=== PATIENT | male | born 1960 | race Caucasian/White ===

== ENCOUNTER → 2024-12-02 | Outpatient (CLI) | payer BC ==
[2024-12-02 11:16] LABS: Partial Thromboplastin Time 24.7 sec (22.0-30.0); Prothrombin Time 11.3 sec (10.0-12.5)
[2024-12-02 15:05] LABS: HCT 41.8 % (39.6-50.0); HGB 14.5 g/dL (13.0-17.0); MCHC 34.7 g/dL (32.0-37.0); MCV 89.5 FL (80.0-97.0); Mean Platelet Volume 9.1 FL (9.5-12.2); NRBC Per 100 WBC 0 X 10*3/uL (0.00-0.01); Platelet Count 333 X 10*3/uL (140-440); RBC 4.67 X 10*6/uL (4.40-5.60); RDW 13.7 % (11.5-14.5); WBC 6.56 X 10*3/uL (4.50-10.00)
[2024-12-02 15:59] LABS: ALT 22 U/L (10-49); AST 20 U/L (14-35); Albumin 4.6 g/dL (3.8-4.9); Alkaline Phosphatase 58 U/L (41-126); BUN/Creat Ratio 20.12 Ratio (12.00-20.00); Blood Urea Nitrogen 16.1 mg/dL (9.0-27.0); Calcium 9.7 mg/dL (8.7-10.3); Carbon Dioxide 23.7 mmol/L (21.6-31.8); Chloride 105 mmol/L (96-109); Globulin 2.7 g/dL (1.6-3.3); Glucose 87 mg/dL (70-110); Potassium 4.6 mmol/L (3.5-5.5); Sodium 139 mmol/L (135-145); Total Bilirubin 0.8 mg/dL (0.3-1.2); Total Protein 7.3 g/dL (6.2-8.2)
== END | disposition home or self-care (01) ==
LOC: LABPAT 10:39
PROVIDERS: ATTEND Orthopaedic Surgery Sports Medicine
DX: Z01.818 Encounter for other preprocedural examination (principal); M19.012 Primary osteoarthritis, left shoulder; Z22.322 Carrier or suspected carrier of Methicillin resistant Staphylococcus aureus
CPT/HCPCS: 36415; 80053; 85027; 85610; 85730; 87070; 93005

== ENCOUNTER 2024-12-24 06:08 | Day surgery (SDC) | payer BC ==
[~2024-12-24 06:08] MED LIST: TRANEXAMIC 1,000 MG/100ML-NACL 1,000 MG in SALINE 1 100ML.BAG IVPB PRN
[2024-12-24] MEDS ORDERED: LIDOCAINE 1% (10MG/ML) FOR IV START INTRADERMA PRN (06:20)
[2024-12-24] MEDS: IV FLUID CONTINUATION 1,000 ML IV ONE (06:45)
[2024-12-24] MEDS: LACTATED RINGERS 1,000 ML IV SCH ×2 (06:53→15:38)
[2024-12-24] MEDS: MELOXICAM 7.5 MG TAB PO PRN (06:54)
[2024-12-24] MEDS: ONDANSETRON 4 MG/2 ML VIAL IVP PRN (06:54)
[2024-12-24] MEDS: GABAPENTIN 300 MG CAP PO PRN (06:54)
[2024-12-24] MEDS: ACETAMINOPHEN TAB 500 MG TAB PO PRN (06:54)
[2024-12-24] MEDS: MIDAZOLAM 2 MG/2 ML VIAL IV ONE (07:03)
[2024-12-24] MEDS ORDERED: LIDOCAINE 1% INJ 10MG/ML (20 ML MDV) ONE (07:39)
[2024-12-24] MEDS ORDERED: fentaNYL (PF) 50 MCG/ML 2 ML AMP ONE (07:39)
[2024-12-24] MEDS ORDERED: PHENYLEPHRINE-0.9% NACL SYG 1,000 MCG/10 ML SYRINGE ONE (07:39)
[2024-12-24] MEDS ORDERED: TRANEXAMIC 1,000 MG/100ML-NACL PREMIX BAG ONE (07:39)
[2024-12-24] MEDS ORDERED: ROPIVACAINE 5 MG/ML 30 ML VIAL ONE (07:39)
[2024-12-24] MEDS ORDERED: SUCCINYLCHOLINE CHLORIDE 200 MG/10 ML VIAL IV ONE (07:39)
[2024-12-24] MEDS ORDERED: GLYCOPYRROLATE 0.2 MG/ML 2 ML VIAL ONE (07:39)
[2024-12-24] MEDS ORDERED: ePHEDrine 50 MG/ML 1 ML VIAL ONE (07:39)
[2024-12-24] MEDS ORDERED: WATER FOR INJECTION, STERILE 10 ML VIAL IV ONE (07:39)
[2024-12-24] MEDS ORDERED: PROPOFOL 10 MG/ML 20 ML VIAL IV ONE (07:39)
[2024-12-24] MEDS ORDERED: NEOSTIGMINE 1 MG/ML 10 ML VIAL ONE (07:39)
[2024-12-24] MEDS ORDERED: ROCURONIUM 10 MG/ML (5 ML VIAL) IV ONE (07:39)
[2024-12-24] MEDS ORDERED: DEXAMETHASONE SOD PHOSPHATE 4 MG/ML 1 ML VIAL ONE (07:39)
[2024-12-24] MEDS ORDERED: SENNOSIDES-DOCUSATE SODIUM 1 EACH TAB PO PRN (08:04)
[2024-12-24] MEDS ORDERED: ONDANSETRON 4 MG/2 ML VIAL IVP PRN (08:04)
[2024-12-24] MEDS ORDERED: HYDROmorphone 1 MG/ML 1 ML SYRINGE IVP PRN (08:04)
[2024-12-24] MEDS ORDERED: HYDROmorphone 0.5 MG/0.5 ML SYRINGE IVP PRN (08:04)
[2024-12-24] MEDS ORDERED: diphenhydrAMINE 25 MG CAP PO PRN (08:04)
[2024-12-24] MEDS ORDERED: METOCLOPRAMIDE 5 MG/ML 2 ML VIAL IVP PRN (08:04)
[2024-12-24] MEDS: ceFAZolin 1,000 MG in SODIUM CHLORIDE 0.9% 1,000 ML IRRIGATION ONE (08:15)
[2024-12-24] MEDS: VANCOMYCIN 1,000 MG VIAL MISCELLANE ONE ×2 (08:20→09:14)
[2024-12-24] MEDS: LACTATED RINGERS 1,000 ML IV ONE (08:49)
--- NOTE | 2024-12-24 11:05 | XR ---
EXAMINATION TYPE: XR shoulder limited LT DATE OF EXAM: 12/24/2024 COMPARISON: NONE CLINICAL INDICATION: Male, 64 years old with history of post op; TECHNIQUE: AP view FINDINGS: Image shows placement of reverse left shoulder arthroplasty. Alignment appears satisfactory . Possible slightly low position of the glottis. Component can be correlated clinically. No periprost hetic fracture seen. There is left basilar opacity and interstitial change in the visualized left martin g. Soft tissue areas to recent operation. IMPRESSION: 1. Questionable slightly low position of the glenosphere component. This may be desired placement. Cl inically correlate. No evident complication otherwise seen. 2. Interstitial and patchy changes within the visualized left lung. Correlate to exclude CHF or under lying pneumonitis. [facility], , 12/24/2024 11:02 AM
--- NOTE | 2024-12-24 11:51 | OP ---
OPERATIVE REPORT DATE OF SERVICE : 12/24/2024 PREOPERATIVE DIAGNOSIS: Left shoulder advanced osteoarthrosis. POSTOPERATIVE DIAGNOSES: 1. Left shoulder advanced osteoarthrosis. 2. Left shoulder full-thickness supraspinatus tear. OPERATION: Left reverse total shoulder arthroplasty. ANESTHESIA: General endotracheal. ESTIMATED BLOOD LOSS: 100 mL. DRAINS: None. COMPLICATIONS: None apparent. DISPOSITION: Postanesthesia care unit. INDICATIONS: Cj is a very pleasant 64-year-old gentleman with longstanding left shoulder pain. Workup including x-rays, CT scan revealed advanced osteoarthrosis of the left shoulder. At this point, it was felt that he has failed conservative management and he would like to proceed with operative intervention. The risks of procedure were discussed with him in detail. These risks included, but were not limited to risk of infection, nerve damage, bleeding, pain, instability in the shoulder, loosening of the implants, and deep infection. There is also small risk of deep vein thrombosis, which could lead to fatal pulmonary embolism. The patient understood these risks. All of his questions with regard to the risks of procedure were answered to his satisfaction. Appropriate informed consent was obtained. DESCRIPTION OF PROCEDURE: The patient was identified in the preoperative holding area. Surgical site was marked by both the patient and myself. He was given 2 g of Ancef IV for prophylactic purposes. He was then transported to the operative suite. He was placed supine on the operating room table. A general anesthetic was then administered and dosed per the anesthesia without apparent complication. Examination under anesthesia was then performed of the left shoulder. He had elevation to 120 degrees. External rotation to side was 20 degrees. The patient was then placed into the beach chair position well-padded in preparation for surgery. Great care was taken to ensure that his cervical spine was in neutral alignment well-padded and maintained that way throughout the operative procedure. Great care was also taken to ensure that his legs were appropriately padded as well. The patient's left upper extremity was then prepped and draped in usual sterile fashion. Standard surgical pause undertaken to ensure that we were operating the correct site and that appropriate preoperative antibiotics were given. All staff in room were in agreement, and we proceeded. The acromion, AC joint clavicle, and coracoid were marked with a surgical pen. A planned incision starting at the level of the clavicle and extending distally over the deltopectoral interval approximately 1 cm lateral to the coracoid was marked with a surgical pen. The incision was then made with a 10-blade scalpel. Dissection was carried down sharply to the deltoid fascia. Hemostasis was achieved with electrocautery. The deltopectoral interval was identified at the level of the clavicle. A small band retractor was then placed under the proximal deltoid. I then released the deltoid fascia on the lateral aspect of the cephalic vein. Cephalic vein was preserved and left in its bed medially. The cephalic vein was protected throughout the entire case. I then identified the clavipectoral fascia. This was incised proximally to the level of the coracoacromial ligament. The coracoacromial ligament was left intact. I then used my finger to spread the interval between the conjoint tendon and the subscapularis. I felt for the axillary nerve, which was readily palpable. I then cleared the subacromial and subdeltoid spaces of bursal and scar tissue. He did have a full-thickness tear of the anterior aspect of the supraspinatus. I then utilized a Hammer retractor to hold the deltoid and expose the humeral head. I then proceeded with release of the subscapularis and the anterior-inferior shoulder capsule. The rotator cuff was again inspected. There was like I said full-thickness tear of the supraspinatus. The rotator interval was then identified. The course of the biceps tendon was also identified. I then released the rotator interval. This was released at the base of the coracoid and then out laterally. The subscapularis and capsule were released intratendinously. The subscapularis and capsule release extended distally in a lazy-S fashion approximately 1 cm medial to the biceps tendon. I then continued to release the capsule along the inferior neck in a vertical fashion to approximately 6 o'clock position. Great care was taken to ensure the capsule was always visualized as it was released as to avoid injuring the axillary nerve. I then brought a Moran solar business developer with the arm externally rotated and abducted. I continued to release the capsule inferomedially to the 4 o'clock position. The inferior osteophytes were now removed as well. This was done with a rongeur. I then proceeded with preparation of the humerus. I removed all the goat's meza osteophytes. I then removed the subchondral plate from the superior aspect of the humeral head utilizing a large rongeur. I then used a starting reamer to gain access to the humeral canal. This was 1 cm medial to the rotator cuff insertion and 1 cm posterior to the bicipital groove. I then prepared the humeral canal with hand reaming starting with a 6 mm reamer and incrementally increasing until firm resistance was encountered at 12 mm. The reamer handle was then left in place. I then utilized a humeral resection guide set at 30 degrees of retrotorsion. The cutting block was then set 1 to 2 mm above the insertion of rotator cuff. I then proceeded to osteotomize the humeral head with an oscillating saw. I removed the resection guide and then completed the osteotomy. I then proceeded with trial stem placement. A trial size 12 was then broached in the canal starting with 6 mm broach and incrementally increasing up to 12 mm broach. The 12 mm trial stem was then left in place. At this point, I did release the biceps tendon. This was tenotomized at the level of the superior labrum. A bone hook was then used to pull the humerus out laterally. I then inspected the joint for any loose bodies. The condition of the cuff was again inspected. He did have a rotator cuff tear as previously mentioned. The Bhattman retractor was then placed on the posterior glenoid rim. The arm was placed in approximately 80 degrees of abduction and in slight flexion on the Moran stand. I then proceeded to remove the hypertrophic labrum to definitively identify the actual glenoid. I then proceeded with a mini base plate guide. The mini base plate guide was then placed flush with the glenoid. The pin was placed just inferior to the center of the glenoid in approximately 10 degrees of inferior tilt. I then used a mini reamer. This was done over the previously placed pin. The reaming was done as minimal as possible as to preserve as much subchondral bone as possible. I then utilized the small augment guide. This was placed over the pin. This provided a nice fit when the augment was placed posterosuperiorly. I then had the customer solutions representative open [employer] mini base plate with a small augment. The augment was oriented posterosuperiorly. This was then impacted into the real glenoid. The pin was removed. I measured for the central screw. A 30 mm central screw was then placed. Had excellent purchase in bone. I was able to rotate the scapula through the screwdriver when the central screw was completely placed. I then proceeded with placing the peripheral locking screws. The inferior screw was a 20 mm screw. The anterior and posterior screws were 15 mm screws, and the superior screw was a 20 mm locking screw. I then made a decision to proceed with a 36 mm glenosphere. It was very minimally offset inferiorly. It was then impacted onto the real base plate with a dry Chang taper. At this point, we thoroughly irrigated the wound with IrriSept antiseptic solution. The shoulder was then redislocated. A standard tray and standard poly were then placed onto the trial broach. The shoulder was reduced. It was a mildly difficult reduction. It was very stable throughout a full range of motion. There was no impingement noted. I felt for the axillary nerve which was intact. The shoulder was then redislocated. I made a decision to proceed with a size 12 mini stem, a standard tray, and a standard poly for 36 mm glenosphere. Again, the wound was thoroughly irrigated. Again, we utilized the IrriSept antiseptic solution. The size 12 mini stem was then impacted into the proximal humerus, had excellent interference fit. This was done in approximately 30 degrees of retrotorsion. The Chang taper was dried and then the standard tray, standard poly was impacted onto the real stem. The shoulder was again reduced. It was mildly difficult reduction. There was no undue tension on the conjoint tendon. I felt for the axillary nerve which was again readily palpable and uninjured. At this point, no further work was deemed necessary. The shoulder was then thoroughly irrigated with sterile saline solution with antibiotic added via pulse lavage. I again used the remaining IrriSept antiseptic solution. When we were done with that, I placed approximately 500 mg of vancomycin powder deep. The deltopectoral interval was reapproximated with 0 Vicryl interrupted suture. The subcutaneous tissue was thoroughly irrigated. The remaining 500 mg of vancomycin powder was placed subcutaneously. The subcutaneous layer was closed with 2-0 Vicryl interrupted suture. The skin was closed with a running 3-0 Quill suture. Dermabond was applied to the incision. A sterile dressing was applied, and the patient's left upper extremity was placed into a standard sling. All sponge and needle counts were deemed correct prior to closure. The patient tolerated the procedure without apparent complication. He was transferred to the recovery room in stable condition. SHAWANDA / AMMY: [id number] /
[2024-12-24] MEDS: HYDROmorphone 0.5 MG/0.5 ML SYRINGE IVP PRN ×2 (13:32→19:52)
[2024-12-24] MEDS: HYDROcodone/APAP 7.5-325MG 1 EACH TAB PO PRN ×2 (17:00→21:52)
--- NOTE | 2024-12-24 21:11 | P.ANPRN ---
Procedure Note - Anesthesia - Nerve Block Performed Left Interscalene Single Time Out Performed: Yes Date of Procedure: 12/24/24 Procedure Start Time: 07:03 Procedure Stop Time: 07:10 Location of Patient: PreOp Indication: Acute Post-Operative Pain, Requested by Surgeon Sedation Type: Sedate with meaningful contact maintained Preparation: Sterile Prep Position: Supine Needle Types: Pajunk Needle Gauge: 21 Ultrasound used to visualize needle placement: Yes Ultrasound used to observe medication spread: Yes Blood Aspirated: No Pain Paresthesia on Injection Noted: No Resistance on Injection: Normal Image Stored and Saved: Yes Events: Uneventful and Well Tolerated (Ropivacaine 0.5% plus dexamethasone 4 mg)
[2024-12-24] MEDS: [UNRECOGNIZED DRUG - OTHER] SUBLINGUAL SCH (21:56)
--- NOTE | 2024-12-24 22:14 | P.CONS ---
History of Present Illness - Reason for Consult Consult date: 12/24/24 Medical management Requesting physician: Kody Laboy - Chief Complaint Left shoulder surgery - History of Present Illness Pleasant 64-year-old patient, with chronic medical condition including GERD, hyperlipidemia, osteoarthritis, depression. PCP Dr. Rudy Jaimes Patient is undergone reverse left shoulder total arthroplasty. Having significant pain. No nausea vomiting. Did tolerate some diet. Denies any cardiac history. Review of systems: GEN.: None EYES: None HEENT: None NECK: None RESPIRATORY: None CARDIOVASCULAR: None GASTROINTESTINAL: None GENITOURINARY: None MUSCULOSKELETAL: [Joint pains LYMPHATICS: None HEMATOLOGICAL: None PSYCHIATRY: None NEUROLOGICAL: None Social history: Works as a [employer]. [employer].. Smoked for a short time in the remote past. Alcohol occasionally. . Physical examination: VITAL SIGNS: 98.5, 68, 18, 126 x 34, 96% room air GENERAL: BMI 34.3,. Sitting in bed awake a bit uncomfortable EYES: Pupils equal. Conjunctiva yohana l. HEENT: External appearance of nose and ears normal, oral cavity grossly normal. NECK: JVD not raised; masses not palpable. HEART: First and second heart sounds are normal; no edema. LUNGS: Respiratory rate normal; clear to auscultation. ABDOMEN: Soft, nontender, liver spleen not palpable, no masses palpable. PSYCH: Alert and oriented x3; mood and affect yohana l. MUSCULOSKELETAL:No Clubbing/cyanosis;muscles-grossly intact. Left shoulder with a dressing. NEUROLOGICAL: Cranial nerves grossly intact; no facial asymmetry, power and sensation grossly intact. LYMPHATICS: No lymph nodes palpable in the axilla and neck INVESTIGATIONS, reviewed in the clinical context: December 02, 2024: White count 6.5 hemoglobin 14.5 platelets 333 sodium 139 potassium 4.6 creatinine 0.8 Assessment plan: -Reverse left total shoulder arthroplasty Pain control per orthopedic team. IV cefazolin for infection prophylaxis. -Depression Prozac -Hyperlipidemia Lipid-lowering agents -Primary osteoarthritis Pain medications as needed Care was discussed with patient. Questions answered. Thank you Dr. Laboy Past Medical History Past Medical History: GERD/Reflux, Hyperlipidemia, Osteoarthritis (OA) Additional Past Medical History / Comment(s): left shoulder pain. History of Any Multi-Drug Resistant Organisms: None Reported Past Surgical History: Joint Replacement Additional Past Surgical History / Comment(s): emma hip replaced, Past Anesthesia/Blood Transfusion Reactions: No Reported Reaction Additional Past Anesthesia/Blood Transfusion Reaction / Comm: 1st hip pt had hiccups for 3 days. Smoking Status: Former smoker - Past Family History Father Family Medical History: Cancer, Coronary Artery Disease (CAD) Additional Family Medical History / Comment(s): prostate cancer Medications and Allergies Home Medications Medication Instructions Recorded Confirmed Type Aspirin 81 mg PO DAILY 12/21/24 12/21/24 History Bempedoic Acid/Ezetimibe [Nexlizet 1 tab SL HS 12/21/24 12/24/24 History 180-10 mg Tablet] FLUoxetine HCL [PROzac] 20 mg PO DAILY 12/21/24 12/24/24 History Otc Prilosec 1 tab PO HS 12/21/24 12/24/24 History Unk Fish Oil 1 tab PO DAILY 12/21/24 12/21/24 History Unk Motrin 1 tab PO DIRECTED PRN 12/21/24 12/21/24 History Unk Multi Vitamin 1 tab PO DAILY 12/21/24 12/21/24 History Allergies Allergy/AdvReac Type Severity Reaction Status Date / Time No Known Allergies Allergy Verified 12/24/24 06:22 Physical Exam Vitals: Vital Signs Temp Pulse Resp BP Pulse Ox 12/24/24 19:27 98.5 F 68 18 96 12/24/24 15:00 98.2 F 92 18 126/74 92 L 12/24/24 13:48 84 16 145/84 95 12/24/24 13:18 84 16 141/78 97 12/24/24 12:48 81 16 137/68 98 12/24/24 12:18 79 14 135/62 95 12/24/24 11:48 78 14 121/70 95 12/24/24 11:30 80 16 121/67 95 12/24/24 11:03 71 14 126/70 97 12/24/24 10:48 73 16 128/71 96 12/24/24 10:33 71 16 126/79 98 12/24/24 10:18 70 16 147/80 98 12/24/24 10:03 77 14 138/74 98 12/24/24 09:48 97.2 F L 86 18 146/78 97 12/24/24 07:18 63 16 130/70 97 12/24/24 06:32 98.1 F 64 18 141/73 96 Intake and Output 12/24/24 12/24/24 12/24/24 06:59 14:59 22:59 Intake Total 400 1651 Output Total 100 Balance 400 1551 Intake: IV 400 1651 Output: Estimated Blood Loss 100 Other: Voiding Method Toilet # Voids 1 Weight 93.4 kg 93.4 kg
[2024-12-25 07:28] VITALS: BP 118/71; PULSE 85; RESP 18; TEMP 98.2
[2024-12-25] MEDS: ASPIRIN 81 MG PO SCH (08:13)
[2024-12-25] MEDS: FLUoxetine HCL 20 MG CAP PO SCH (08:13)
[2024-12-25 08:32] LABS: Basophils # (A) 0.02 X 10*3/uL (0.00-0.10); Basophils % (A) 0.2 %; Eosinophils # (A) 0.01 X 10*3/uL (0.04-0.35); Eosinophils % (A) 0.1 %; HCT 36.5 % (39.6-50.0); HGB 12.1 g/dL (13.0-17.0); Lymphocytes # (A) 2.14 X 10*3/uL (0.90-5.00); Lymphocytes % (A) 25.9 %; MCH 30.8 pg (27.0-32.0); MCHC 33.2 g/dL (32.0-37.0); MCV 92.9 FL (80.0-97.0); Mean Platelet Volume 9.5 FL (9.5-12.2); Monocytes # (A) 0.72 X 10*3/uL (0.20-1.00); Monocytes % (A) 8.7 %; NRBC Per 100 WBC 0 X 10*3/uL (0.00-0.01); Neutrophils # (A) 5.35 X 10*3/uL (1.80-7.70); Neutrophils % (A) 64.7 %; Platelet Count 294 X 10*3/uL (140-440); RBC 3.93 X 10*6/uL (4.40-5.60); RDW 13.9 % (11.5-14.5); WBC 8.27 X 10*3/uL (4.50-10.00)
--- NOTE | 2024-12-25 11:26 | P.PN ---
Progress Note - Text Progress Note Date: 12/25/24 - Chief Complaint Left shoulder surgery - History of Present Illness Pleasant 64-year-old patient, with chronic medical condition including GERD, hyperlipidemia, osteoarthritis, depression. PCP Dr. Rudy Jaimes Patient is undergone reverse left shoulder total arthroplasty. Having significant pain. No nausea vomiting. Did tolerate some diet. Denies any cardiac history. December 25: Had significant pain in left shoulder overnight. Tolerated diet. No nausea vomiting. Has been up to the bathroom. Active Medications Hydrocodone Bitart/Acetaminophen (Hydrocodone/Apap 7.5-325mg 1 Each Tab) 1 each PO Q4H PRN PRN Reason: Pain Scale 1 to 5 Stop: 01/23/25 08:07 Last Admin: 12/24/24 17:00 Dose: 1 each Hydrocodone Bitart/Acetaminophen (Hydrocodone/Apap 7.5-325mg 1 Each Tab) 2 each PO Q6H PRN PRN Reason: Pain Scale 6 to 10 Stop: 01/23/25 08:07 Last Admin: 12/25/24 05:18 Dose: 2 each Aspirin (Aspirin 81 Mg) 81 mg PO DAILY [facility] Last Admin: 12/25/24 08:13 Dose: 81 mg Diphenhydramine HCl (Diphenhydramine 25 Mg Cap) 25 mg PO HS PRN PRN Reason: Insomnia Stop: 01/23/25 08:03 Fluoxetine HCl (Fluoxetine Hcl 20 Mg Cap) 20 mg PO DAILY [facility] Last Admin: 12/25/24 08:13 Dose: 20 mg Hydromorphone HCl (Hydromorphone 0.5 Mg/0.5 Ml Syringe) 0.25 mg IVP Q3HR PRN PRN Reason: Pain Scale 1 to 3 Stop: 01/23/25 08:03 Hydromorphone HCl (Hydromorphone 1 Mg/Ml 1 Ml Syringe) 1 mg IVP Q3HR PRN PRN Reason: Pain Scale 7 to 10 Stop: 01/23/25 08:03 Hydromorphone HCl (Hydromorphone 0.5 Mg/0.5 Ml Syringe) 0.5 mg IVP Q3HR PRN PRN Reason: Pain Scale 4 to 6 Stop: 01/23/25 08:03 Last Admin: 12/25/24 08:17 Dose: 0.5 mg Lidocaine HCl (Lidocaine 1% (10mg/Ml) For Iv Start) 0.1 ml INTRADERMA PER PROTOCOL PRN PRN Reason: IV Start Stop: 01/23/25 06:19 Metoclopramide HCl (Metoclopramide 5 Mg/Ml 2 Ml Vial) 10 mg IVP Q6HR PRN PRN Reason: Nausea And Vomiting Stop: 01/23/25 08:03 Nexlizet (Bempedoic Acid/Ezetimibe ) 180 -10 Mg Tablet 1 tab SUBLINGUAL HS [facility] Last Admin: 12/24/24 21:56 Dose: Not Given Ondansetron HCl (Ondansetron 4 Mg/2 Ml Vial) 4 mg IVP Q8HR PRN PRN Reason: Nausea And Vomiting Stop: 01/23/25 08:03 Senna/Docusate Sodium (Sennosides-Docusate Sodium 1 Each Tab) 2 each PO HS PRN PRN Reason: Constipation Stop: 01/23/25 08:03 Social history: Works as a [employer]. [employer].. Smoked for a short time in the remote past. Alcohol occasionally. . Physical examination: VITAL SIGNS: 98.2, 85, 18, 118 x 71, 92% room air GENERAL: BMI 34.3,. Reclining in bed EYES: Pupils equal. Conjunctiva yohana l. HEENT: External appearance of nose and ears normal, oral cavity grossly normal. NECK: JVD not raised; masses not palpable. HEART: First and second heart sounds are normal; no edema. LUNGS: Respiratory rate normal; clear to auscultation. ABDOMEN: Soft, nontender, liver spleen not palpable, no masses palpable. PSYCH: Alert and oriented x3; mood and affect yohana l. MUSCULOSKELETAL:No Clubbing/cyanosis;muscles-grossly intact. Left shoulder with a dressing. Hand movements well with sensation. INVESTIGATIONS, reviewed in the clinical context: December 25: White count 8.2 hemoglobin 12.1 December 02, 2024: White count 6.5 hemoglobin 14.5 platelets 333 sodium 139 potassium 4.6 creatinine 0.8 Assessment plan: -Reverse left total shoulder arthroplasty Pain control per orthopedic team. IV cefazolin for infection prophylaxis. -Acute postprocedure blood loss anemia expected from surgery Add ferrous sulfate oral -Depression Prozac -Hyperlipidemia Lipid-lowering agents -Primary osteoarthritis Pain medications as needed Discussed with patient. Add ferrous sulfate Thank you Dr. Laboy Past Medical History Past Medical History: GERD/Reflux, Hyperlipidemia, Osteoarthritis (OA) Additional Past Medical History / Comment(s): left shoulder pain. History of Any Multi-Drug Resistant Organisms: None Reported Past Surgical History: Joint Replacement Additional Past Surgical History / Comment(s): emma hip replaced, Past Anesthesia/Blood Transfusion Reactions: No Reported Reaction Additional Past Anesthesia/Blood Transfusion Reaction / Comm: 1st hip pt had hiccups for 3 days. Smoking Status: Former smoker
--- NOTE | 2024-12-25 13:14 | P.DS ---
Providers Expected date of discharge: 12/25/24 Attending physician: Kody Laboy Consults: 12/24/24 08:04 Consult Physician Routine Consulting Provider: Bogdan Jensen Consult Reason/Comments: post op medical management Do you want consulting provider notified?: Yes Primary care physician: Rudy Jaimes - Discharge Diagnosis(es) (1) Primary osteoarthritis, left shoulder Patient was admitted to the OR on 12/25/24 to undergo a left total knee arthroplasty. He had failed conservative measures as an outpatient and desired to proceed with elective surgery after given informed consent. He underwent the above procedure which he tolerated well without complication. Postoperative hospital course has remained without complication. On day of discharge he is afebrile, vital signs stable, labs within acceptable ranges, tolerating by mouth meds and diet, voiding without difficulty, positive flatus, denies abdominal pain or calf pain, pain is controlled on oral pain medication and has no new complaints. Wound is benign, neurovascular status is intact, calf is soft and nontender, abdomen soft and nontender. Review of systems is negative for numbness, tingling, fever, chills, chest pain, shortness of breath, nausea, vomiting, dizziness, headaches, slurred speech or other. Current Visit: Yes Status: Acute Priority: Medium Procedures: Left reverse TSA Patient Condition at Discharge: Good Plan - Discharge Summary Discharge Rx Participant: No New Discharge Prescriptions: New Ferrous Sulfate [Feosol] 325 mg PO DAILY #30 tab Doxycycline Hyclate 100 mg PO BID #10 tab Docusate [Colace] 100 mg PO BID #60 capsule HYDROcodone/APAP 10-325MG [[place] 10-325] 1 tab PO Q4HR PRN #30 tab PRN Reason: Pain Continue FLUoxetine HCL [PROzac] 20 mg PO DAILY Otc Prilosec 1 tab PO HS Aspirin 81 mg PO DAILY Bempedoic Acid/Ezetimibe [Nexlizet 180-10 mg Tablet] 1 tab SL HS No Action Unk Multi Vitamin 1 tab PO DAILY Unk Motrin 1 tab PO DIRECTED PRN PRN Reason: Pain Unk Fish Oil 1 tab PO DAILY Discharge Medication List Aspirin 81 mg PO DAILY 12/21/24 [History] Bempedoic Acid/Ezetimibe [Nexlizet 180-10 mg Tablet] 1 tab SL HS 12/21/24 [History] FLUoxetine HCL [PROzac] 20 mg PO DAILY 12/21/24 [History] Otc Prilosec 1 tab PO HS 12/21/24 [History] Unk Fish Oil 1 tab PO DAILY 12/21/24 [History] Unk Motrin 1 tab PO DIRECTED PRN 12/21/24 [History] Unk Multi Vitamin 1 tab PO DAILY 12/21/24 [History] Docusate [Colace] 100 mg PO BID #60 capsule 12/25/24 [Rx] Doxycycline Hyclate 100 mg PO BID #10 tab 12/25/24 [Rx] Ferrous Sulfate [Feosol] 325 mg PO DAILY #30 tab 12/25/24 [Rx] HYDROcodone/APAP 10-325MG [[place] 10-325] 1 tab PO Q4HR PRN #30 tab 12/25/24 [Rx] Follow up Appointment(s)/Referral(s): Kody Laboy MD [STAFF PHYSICIAN] - 10 Days Activity/Diet/Wound Care/Special Instructions: maintain sling non weightbearing Keep wound clean and dry take meds as directed may shower after 3 days if no bleeding Discharge Disposition: HOME SELF-CARE
== END 2024-12-25 14:25 | disposition home or self-care (01) ==
LOC: OR 06:08 → 4SSUR 09:32 → OR 12-25 14:25
PROVIDERS: ATTEND Orthopaedic Surgery Sports Medicine
DX: M19.012 Primary osteoarthritis, left shoulder (principal); M75.112 Incomplete rotator cuff tear or rupture of left shoulder, not specified as traumatic; G89.18 Other acute postprocedural pain; D62 Acute posthemorrhagic anemia; E78.2 Mixed hyperlipidemia; K21.9 Gastro-esophageal reflux disease without esophagitis; M48.02 Spinal stenosis, cervical region; M51.360 Other intervertebral disc degeneration, lumbar region with discogenic back pain only; F33.41 Major depressive disorder, recurrent, in partial remission; J30.1 Allergic rhinitis due to pollen; Z79.82 Long term (current) use of aspirin; Z79.899 Other long term (current) drug therapy; Z87.891 Personal history of nicotine dependence; Z82.61 Family history of arthritis
CPT/HCPCS: 23472; 64415; 85025; 73020; C1776; J2250; J3370; J0330; J1100; J2710; J0690 ×3; J2405; J2003; J3010; J2795; J2704; J1171 ×2; J2371; J1596